=== PATIENT | male | born 1990 | race African-American/Black ===

== ENCOUNTER 2022-12-10 01:25 | Emergency (ER) | payer SELFPAY ==
[2022-12-10 02:07] LABS: BASOPHILS PERCENT AUTO 0.3 % (0.2-1.2); EOSINOPHILS ABSOLUTE AUTO 0.5 x10^3/uL (0.0-0.5); EOSINOPHILS PERCENT AUTO 4.4 % (0.0-4.0); HEMATOCRIT 44.8 % (40.0-52.0); HEMOGLOBIN 14.7 g/dL (14.0-18.0); IMMATURE GRAN ABSOLUTE AUTO 0.04 x10^3/uL (0.00-0.07); LYMPHOCYTES ABSOLUTE AUTO 3.9 x10^3/uL (1.0-4.8); LYMPHOCYTES PERCENT AUTO 35.3 % (25.0-50.0); MEAN CORPUSCULAR HEMOGLOBIN 25.6 pg (26.0-32.0); MEAN CORPUSCULAR HGB CONC 32.8 g/dL (32.0-36.0); MEAN CORPUSCULAR VOLUME 77.9 fL (78.0-93.0); MONOCYTES ABSOLUTE AUTO 0.8 x10^3/uL (0.0-0.8); MONOCYTES PERCENT AUTO 7.4 % (2.0-11.0); NEUTROPHILS ABSOLUTE AUTO 5.7 x10^3/uL (1.8-7.7); NEUTROPHILS PERCENT AUTO 52.2 % (50.0-80.0); PLATELET COUNT,PLT 281 x10^3/uL (130-400); RED BLOOD CELL COUNT 5.75 x10^6/uL (4.5-6.0)
[2022-12-10] MEDS: Acetaminophen 325 MG Tab PO ONE (02:17)
[2022-12-10 02:22] LABS: A/G RATIO 0.97; ALBUMIN 3.6 g/dL (3.4-5.0); BILIRUBIN TOTAL 0.2 mg/dL (0.2-1.0); C-REACTIVE PROTEIN 1.67 mg/dL (<=0.30); CALCIUM 8.8 mg/dL (8.5-10.1); EST CRCL DRUG DOSING (CG) 108.49 mL/min; POTASSIUM,K 4.1 mmol/L (3.5-5.1); PROTEIN TOTAL,TP 7.3 g/dL (6.4-8.2)
[2022-12-10 02:23] LABS: ANION GAP 16.1 mmol/L (5-15)
[2022-12-10] MEDS: Iopamidol 612 MG/ML 100 ML Bottle IVPUSH ONE (02:37)
[2022-12-10] MEDS: cefTRIAXone 1 GM Vial IVPUSH ONE (03:37)
[2022-12-10] MEDS: Ketorolac 30 MG/ML SDV IVPUSH ONE (03:37)
== END 2022-12-10 03:48 | disposition home or self-care (01) ==
LOC: VM.ED 01:25
DX: L03.213 Periorbital cellulitis (principal); J32.0 Chronic maxillary sinusitis
CPT/HCPCS: 36415; 70450; 70487; 80053; 85025; 86140; 96374; 96375; 99284; 99284-25; A9270-GY; J0696; J1885; Q9967